=== PATIENT | female | born 1995 | race Caucasian/White ===

== ENCOUNTER 2017-01-04 13:03 | Emergency (ER) | payer SELFPAY ==
[~2017-01-04 13:03] MED LIST: Z.0.NO CURRENT MEDS
[2017-01-04 13:05] VITALS: BP 143/76; PULSE 110; RESP 18; TEMP 98.8; O2SAT 99
--- NOTE | 2017-01-04 13:24 | PD ---
Physical Exam Time Seen by Provider: 13:23 Narrative 21yo F c/o swelling and pain to L 3rd finger since yesterday. Denies fever, vomiting. Patient seen in triage. VS reviewed. Awaiting bed placement. Data Data Last Documented VS Vital Signs Date Time Temp Pulse Resp B/P Pulse Ox O2 Delivery O2 Flow Rate FiO2 01/04/17 13:05 98.8 110 18 143/76 99 Room Air MDM Supervised Visit with BHAVESH: Shital Newton Jan 04, 2017 13:24
[2017-01-04] MEDS ORDERED: CIPR-9 PO (13:42)
[2017-01-04] MEDS ORDERED: IBUP800T23 PO (13:42)
--- NOTE | 2017-01-04 13:42 | PD ---
HPI . Right middle finger swelling Chief Complaint: Laceration/Skin Injury Time Seen by Provider: 13:34 Travel History International Travel<30 days: No Contact w/Intl Traveler<30days: No Traveled to known affect area: No History of Present Illness HPI Patient presents complaining with pain and swelling of her right middle finger. It started after fishing yesterday. She believes that she may have been pierced by something sharp on the shrimp or possibly pinched by the shrimp. Nonetheless, she is developed progressively worsening pain and swelling at the tip of her right middle finger. She had a fever. Pain is constant and achy and rated 4/10. PFSH Past Medical History Developmental Delay: No Immunizations Current: Yes Social History Alcohol Use: No Tobacco Use: No Substance Use: No Allergies-Medications (Allergen,Severity, Reaction): Coded Allergies: Latex (Verified Allergy, Unknown, rash, 01/04/17) Reported Meds & Prescriptions Reported Meds & Active Scripts Active No Active Prescriptions or Reported Medications Review of Systems Except as stated in HPI: all other systems reviewed are Neg General / Constitutional: No: Fever, Chills Gastrointestinal: No: Nausea, Vomiting Skin: Positive Change in Pigmentation Physical Exam Narrative GENERAL: Awake and alert and in no acute distress. SKIN: Warm and dry. Erythema and swelling at the pad of the right middle finger. There is no fluctuance. No pointing. HEAD: Atraumatic. Normocephalic. EYES: Pupils equal and round. NECK: Trachea midline. CARDIOVASCULAR: Regular rate and rhythm. RESPIRATORY: No accessory muscle use. MUSCULOSKELETAL: No obvious deformities. No edema. NEUROLOGICAL: Awake and alert. No obvious cranial nerve deficits. Motor grossly within normal limits. Normal speech. PSYCHIATRIC: Appropriate mood and affect; insight and judgment normal. Data Data Last Documented VS Vital Signs Date Time Temp Pulse Resp B/P Pulse Ox O2 Delivery O2 Flow Rate FiO2 01/04/17 13:05 98.8 110 18 143/76 99 Room Air MDM Medical Decision Making Medical Screen Exam Complete: Yes Emergency Medical Condition: Yes Differential Diagnosis My differential diagnosis includes but is not limited to localized wound infection, cellulitis, abscess Narrative Course This patient presents for pain and swelling of her right third finger after fishing yesterday. She will be covered for a marine related cellulitis. Diagnosis Primary Impression: Cellulitis Qualified Code: L03.011 - Cellulitis of finger of right hand Patient Instructions: Cellulitis (DC), General Instructions Med/Other Pt SpecificInfo: Prescription(s) given Scripts Ibuprofen 800 Mg [id number] Mg PO Q8H PRN (Pain/Inflammation) #60 TAB Ref 0 Prov:Vicky Sandoval MD 01/04/17 Ciprofloxacin (Cipro)500 Mg [id number] Mg PO BID 10 Days Ref 0 Prov:Vicky Sandoval MD 01/04/17 Disposition: 01 DISCHARGE HOME Condition: Stable Vicky Sandoval MD Jan 04, 2017 13:42
[2017-01-04 13:53] VITALS: BP 138/77; TEMP 97.8
== END 2017-01-04 13:56 | disposition home or self-care (01) ==
LOC: NEPD 13:03
DX: L03.011 Cellulitis of right finger (principal); R50.9 Fever, unspecified; X58.XXXA Exposure to other specified factors, initial encounter
CPT/HCPCS: 99284